=== PATIENT | male | born 1990 | race Caucasian/White ===

== ENCOUNTER 2019-08-23 23:52 | Emergency (ER) | payer BC ==
[2019-08-24] MEDS ORDERED: NORMAL SALINE 1000 ML 1,000 ML IV ONE ×2 (00:42→01:37)
[2019-08-24] MEDS ORDERED: ONDANSETRON HCL INJ/PF 4 MG/2 ML SDV IV ONE (00:42)
[2019-08-24 01:24] LABS: HEMATOCRIT 49.7 % (37.9-51.0); HEMOGLOBIN 16.9 g/dL (13.5-17.0); MEAN CORPUSCULAR HEMOGLOBIN 29.4 pg (27.0-33.4); MEAN CORPUSCULAR VOLUME 86 fl (80-97); PLATELET COUNT 316 10^3/uL (150-450); RED BLOOD COUNT 5.76 10^6/uL (4.35-5.55); RED CELL DISTRIBUTION WIDTH 13.7 % (11.5-14.0); WHITE BLOOD COUNT 22.5 10^3/uL (4.0-10.5)
[2019-08-24 01:35] LABS: ALBUMIN 5.4 g/dL (3.5-5.0); ALKALINE PHOSPHATASE 115 U/L (38-126); ASPARTATE AMINO TRANSFERASE 33 U/L (17-59); BILIRUBIN,DIRECT 0.3 mg/dL (0.0-0.4); BILIRUBIN,TOTAL 1.1 mg/dL (0.2-1.3); BLOOD UREA NITROGEN 23 mg/dL (7-20); GLUCOSE 196 mg/dL (75-110); TOTAL PROTEIN 8.8 g/dL (6.3-8.2)
[2019-08-24 01:36] LABS: ABSOLUTE LYMPHOCYTES# (MANUAL) 0.2 10^3/uL (0.5-4.7); ABSOLUTE MONOCYTES # (MANUAL) 1.1 10^3/uL (0.1-1.4); BAND NEUTROPHILS % (MANUAL) 3 % (3-5); BASOPHILS % (MANUAL) 0 % (0-2); EOSINOPHILS % (MANUAL) 0 % (0-6); LYMPHOCYTES % (MANUAL) 1 % (13-45); MONOCYTES % (MANUAL) 5 % (3-13); RBC MORPHOLOGY COMMENT NORMO-CYTIC/CHROMIC; SEGMENTED NEUTROPHILS % (MAN) 91 % (42-78); TOTAL CELLS COUNTED 100; TOXIC GRANULATION SLIGHT; TOXIC VACUOLATION PRESENT
[2019-08-24] MEDS ORDERED: DIPHENHYDRAMINE HCL 50 MG/ML VIAL IV ONE (01:36)
[2019-08-24 01:37] LABS: PLATELET COMMENT ADEQUATE
[2019-08-24] MEDS ORDERED: MORPHINE SULFATE 10 MG/ML INJ IV ONE (01:37)
--- NOTE | 2019-08-24 01:38 | ER Document Report ---
ED GI/ - General Chief Complaint: Vomiting/Diarrhea Stated Complaint: VOMITING,DIARRHEA Time Seen by Provider: 08/24/19 01:25 Primary Care Provider: MI DIALLO PA-C [Primary Care Provider] - Follow up as needed Notes: Patient is a 28-year-old male that comes emergency department for chief complaint of vomiting and diarrhea. He states that this evening he suddenly started getting nauseated, he vomited over 10 times, he had even more diarrhea than this. Both are nonbloody. He denies fever but he has been having some chills. He denies recent antibiotics, foreign travel, suspicious food other than [employer] for lunch. He is medicated for insomnia and anxiety, has had oral surgery, denies medical history otherwise. Reports occasional alcohol but not today, denies recreational drugs. TRAVEL OUTSIDE OF THE [place] IN LAST 30 DAYS: No - Related Data Allergies/Adverse Reactions: No Known Allergies Allergy (Unverified 08/24/19 02:07) Home Medications: trazadone 100 mg qhs. prestiq 200 mg qday Past Medical History - General Information source: Patient, Relative - Social History Smoking Status: Never Smoker Frequency of alcohol use: Occasional Drug Abuse: None Lives with: Family Family History: Reviewed & Not Pertinent Patient has suicidal ideation: No Patient has homicidal ideation: No Surgical Hx: Negative - Immunizations Immunizations up to date: Yes Hx Diphtheria, Pertussis, Tetanus Vaccination: Yes Review of Systems - Review of Systems Constitutional: No symptoms reported EENT: No symptoms reported Cardiovascular: No symptoms reported Respiratory: No symptoms reported Gastrointestinal: See HPI Genitourinary: No symptoms reported Male Genitourinary: No symptoms reported Musculoskeletal: No symptoms reported Skin: No symptoms reported Hematologic/Lymphatic: No symptoms reported Neurological/Psychological: No symptoms reported Physical Exam - Vital signs Vitals: Pulse Resp BP Pulse Ox 98 20 88/50 L 98 08/24/19 00:38 08/24/19 00:38 08/24/19 00:38 08/24/19 00:38 - Notes Notes: GENERAL: Alert but uncomfortable in appearance and somewhat pale HEAD: Normocephalic, atraumatic. EYES: Pupils equal, round, and reactive to light. Extraocular movements intact. ENT: Oral mucosa very dry, tongue midline. Oropharynx unremarkable. Airway patent. LUNGS: Clear to auscultation bilaterally, no wheezes, rales, or rhonchi. No respiratory distress. HEART: Regular rate and rhythm. No murmur ABDOMEN: Soft, non-tender. Non-distended. EXTREMITIES: Moves all 4 extremities spontaneously. No edema, normal radial and dorsalis pedis pulses bilaterally. No cyanosis. BACK: no cervical, thoracic, lumbar midline tenderness. No saddle anesthesia, normal distal neurovascular exam. Moves all extremities in full range of motion. NEUROLOGICAL: Alert and oriented x3. Normal speech. Cranial nerves II through XII grossly intact. PSYCH: Normal affect, normal mood. SKIN: Pale Course - Re-evaluation Re-evalutation: Patient initially hypotensive, pale, somewhat unwell appearing. However his abdomen is actually very benign, he has no CVA tenderness, his evaluation is unremarkable otherwise except for parched mucous membranes. Starting IV fluids, symptomatic management. Patient reevaluated after initial IV fluid bolus, hypotension resolved, patien t's color is improved, he states he feels much better already. Giving medications, more IV fluids. CBC shows leukocytosis at greater than 20,000, elevated creatinine at 1.8. On reevaluation patient is again improved, has no current complaints, has a soft benign abdomen. Feel overall presentation is most consistent with either toxin or viral syndrome causing vomiting, diarrhea, dehydration. Dehydration is significant, discussed with patient, given additional fluids and CBC and chemistry were repeated to make sure patient is improving. CBC significantly improved with leukocytosis of 13,000, chemistry is much improved as well with improved creatinine at 1.4. Patient was also able to urinate now and this was unremarkable. No evidence of myoglobin. Very low suspicion of passing stone or acute abdomen. Patient states he feels completely better, requesting to go home, he tolerated p.o. without any difficulty. Discussed follow-up and return precautions. Patient had significant other state understanding and agreement with plan. Stable at time of discharge. - Vital Signs Vital signs: Temp Pulse Resp BP Pulse Ox 98 21 H 120/76 99 08/24/19 00:38 08/24/19 05:01 08/24/19 05:00 08/24/19 05:01 - Laboratory Result Diagrams: 08/24/19 03:22 08/24/19 03:22 Laboratory results interpreted by me: 08/24/19 08/24/19 08/24/19 00:54 00:54 03:22 WBC 22.5 H 13.9 H RBC 5.76 H Seg Neuts % (Manual) 91 H 94 H Lymphocytes % (Manual) 1 L 1 L Monocytes % (Manual) 1 L Abs Neuts (Manual) 21.2 H 13.6 H Abs Lymphs (Manual) 0.2 L 0.1 L Chloride Carbon Dioxide 21 L BUN 23 H Creatinine 1.82 H Est GFR ( Amer) 53 L Est GFR (MDRD) Non-Af 44 L Glucose 196 H Calcium 11.0 H Total Protein 8.8 H Albumin 5.4 H Urine Ketones 08/24/19 08/24/19 03:22 04:29 WBC RBC Seg Neuts % (Manual) Lymphocytes % (Manual) Monocytes % (Manual) Abs Neuts (Manual) Abs Lymphs (Manual) Chloride 109 H Carbon Dioxide 21 L BUN 22 H Creatinine 1.43 H Est GFR ( Amer) Est GFR (MDRD) Non-Af 58 L Glucose 120 H Calcium Total Protein Albumin Urine Ketones 20 H Discharge - Discharge Clinical Impression: Dehydration, Vomiting and diarrhea, Acute renal insufficiency Condition: Stable Disposition: HOME, SELF-CARE Additional Instructions: Your evaluation indicates dehydration, you have been treated for this, your kidney functioning is significantly improved on recheck, please follow-up with primary care referral to have this rechecked outpatient. Call for your follow- up appointment as directed. Take Phenergan as needed for nausea, take the famotidine to help with your recovery, start with plenty of fluids and bland diet. Slowly progress. Initially I recommend that you avoid dairy, spicy, fatty/fried foods. Return to the emergency department if you worsen including developing abdominal pain, uncontrolled vomiting, or any other concerning or worsening symptoms. Prescriptions: Famotidine [Pepcid 20 mg Tablet] 20 mg PO DAILY #12 tablet Promethazine HCl [Phenergan 25 mg Tablet] 25 mg PO Q6H PRN #20 tablet PRN Reason: Forms: Return to Work Referrals: MI DIALLO PA-C [Primary Care Provider] - Follow up in 3-5 days
[2019-08-24 01:42] LABS: CARBON DIOXIDE 21 mmol/L (22-30); CHLORIDE 101 mmol/L (98-107)
[2019-08-24 01:45] LABS: ANION GAP 19 (5-19)
[2019-08-24] MEDS ORDERED: SUCRALFATE 1 GM TABLET PO ONE (03:10)
[2019-08-24] MEDS ORDERED: FAMOTIDINE 20 MG TABLET PO ONE (03:10)
[2019-08-24] MEDS ORDERED: RINGERS SOLUTION,LACTATED 1,000 ML IV ONE (03:10)
[2019-08-24 03:44] LABS: HEMATOCRIT 41.8 % (37.9-51.0); MEAN CORPUSCULAR HEMOGLOBIN 29.6 pg (27.0-33.4); MEAN CORPUSCULAR HGB CONC 33.8 g/dL (32.0-36.0); MEAN CORPUSCULAR VOLUME 88 fl (80-97); PLATELET COUNT 213 10^3/uL (150-450); RED BLOOD COUNT 4.78 10^6/uL (4.35-5.55); RED CELL DISTRIBUTION WIDTH 13.7 % (11.5-14.0); WHITE BLOOD COUNT 13.9 10^3/uL (4.0-10.5)
[2019-08-24 03:53] LABS: ANION GAP 10 (5-19); BLOOD UREA NITROGEN 22 mg/dL (7-20); CALCIUM 8.9 mg/dL (8.4-10.2); CARBON DIOXIDE 21 mmol/L (22-30); CHLORIDE 109 mmol/L (98-107); GLUCOSE 120 mg/dL (75-110); POTASSIUM 4.4 mmol/L (3.6-5.0)
[2019-08-24 04:27] LABS: ABSOLUTE LYMPHOCYTES# (MANUAL) 0.1 10^3/uL (0.5-4.7); ABSOLUTE MONOCYTES # (MANUAL) 0.1 10^3/uL (0.1-1.4); BAND NEUTROPHILS % (MANUAL) 4 % (3-5); BASOPHILS % (MANUAL) 0 % (0-2); EOSINOPHILS % (MANUAL) 0 % (0-6); LYMPHOCYTES % (MANUAL) 1 % (13-45); MONOCYTES % (MANUAL) 1 % (3-13); SEGMENTED NEUTROPHILS % (MAN) 94 % (42-78); TOTAL CELLS COUNTED 100
[2019-08-24 04:28] LABS: BURR CELLS SLIGHT; OVALOCYTES SLIGHT; POIKILOCYTOSIS SLIGHT; TOXIC GRANULATION SLIGHT; TOXIC VACUOLATION PRESENT
[2019-08-24 04:29] LABS: PLATELET COMMENT ADEQUATE
[2019-08-24 04:30] LABS: HEMOGLOBIN 14.1 g/dL (13.5-17.0)
[2019-08-24 04:54] LABS: APPEARANCE,URINE CLEAR; BILIRUBIN,URINE NEGATIVE (NEGATIVE); COLOR,URINE YELLOW; GLUCOSE, URINE NEGATIVE (NEGATIVE); KETONES,URINE 20 mg/dL (NEGATIVE); LEUKOCYTE ESTERASE,URINE NEGATIVE (NEGATIVE); NITRITE,URINE NEGATIVE (NEGATIVE); PROTEIN,URINE NEGATIVE (NEGATIVE); UROBILINOGEN,URINE NEGATIVE mg/dL (<2.0)
[2019-08-24 05:34] VITALS: BP 120/76
== END 2019-08-24 05:57 | disposition home or self-care (01) ==
LOC: ER 23:52
DX: E86.0 Dehydration (principal); R11.10 Vomiting, unspecified; R19.7 Diarrhea, unspecified; N28.9 Disorder of kidney and ureter, unspecified
CPT/HCPCS: 99284; 96361; 96374; 96375; 36415; 83690; 85025; 80053; 81001; J1200; J2270; J2405; J7030; J7120